=== PATIENT | male | born 1995 ===

== ENCOUNTER 2016-08-07 19:48 | Emergency (ER) | payer SELFPAY ==
[2016-08-07] MEDS ORDERED: KETAMINE HCL* 50 MG/ML 10 ML VIAL IM ONE (19:51)
[2016-08-07] MEDS ORDERED: Etomidate* 2 MG/ML 10 ML VIAL IV ONE (19:53)
[2016-08-07] MEDS ORDERED: Succinylcholine* 20 MG/ML 10 ML VIAL IV ONE (19:53)
[2016-08-07] MEDS ORDERED: Midazolam* 1 MG/ML 10 ML VIAL (10 MG) ONE (20:20)
[2016-08-07] MEDS ORDERED: Etomidate* 2 MG/ML 20 ML VIAL (40 MG) ONE (20:30)
[2016-08-07] MEDS: Propofol* 100 ML IV SCH ×2 (20:30→22:35)
[2016-08-07] MEDS ORDERED: KETAMINE HCL* 50 MG/ML 10 ML VIAL ONE (20:30)
[2016-08-07] MEDS ORDERED: Propofol* 200 ML ONE (20:34)
[2016-08-07] MEDS ORDERED: Propofol* 500 MG/50 ML BTL IV SCH (21:00)
[2016-08-07 21:20] LABS: Hematocrit 46 % (42-52); Hemoglobin 15.4 g/dl (14.0-18.0); Mean Corpuscular HGB Conc 33 g/dl (31-36); Mean Corpuscular Hemoglobin 31 pg (27-31); Mean Corpuscular Volume 92 fL (80-94); Mean Platelet Volume 10 um3 (7.4-10.4); Red Blood Count 5.05 10^6/ul (4.0-5.4); Red Cell Distribution Width 13 % (10.5-15); White Blood Count 15.6 10^3/ul (3.5-10.8)
--- NOTE | 2016-08-07 21:28 | RAD ---
INDICATION: Intubation COMPARISON: None TECHNIQUE: An AP portable view obtained at 2100 hours is submitted. FINDINGS: Bones/Soft Tissues: There are no acute bony findings. There is no endotracheal tube in satisfactory position 3 cm above the garo. Nasogastric tube passes normally through the mediastinum. Cardiomediastinal: The cardiomediastinal silhouette is normal. Lungs: There are no infiltrates. Pleura: There are no pleural effusions. Other: None IMPRESSION: NO ACTIVE DISEASE. ENDOTRACHEAL AND NASOGASTRIC TUBES IN EXPECTED POSITIONS.
[2016-08-07 21:35] LABS: Albumin 4.5 g/dL (3.2-5.2); BUN/Creatinine Ratio 12.2 (8-20); Calcium 9.1 mg/dL (8.6-10.3); EGFR African American 94.6 (>60); EGFR Non-African American 73.6 (>60); Globulin 2.7 g/dL (2-4); Total Bilirubin 0.8 mg/dL (0.2-1.0); Total Protein 7.2 g/dL (6.4-8.9)
--- NOTE | 2016-08-07 21:42 | RAD ---
INDICATION: Fall. Possible neck injury. Overdose. COMPARISON: Chest x-ray August 07, 2016 TECHNIQUE: Noncontrast axial source images was performed from the skull base to the thoracic inlet. Coronal and and sagittal reformatted images were generated. FINDINGS: Vertebrae: There is no fracture or acute focal bony lesion. Alignment: The craniocervical junction appears normal. The cervical vertebrae are normally aligned. Central Canal: There are no significant CT abnormalities of the central canal or foramina. MR imaging is a more sensitive method to evaluate the canal and foramina. Intervertebral disc spaces: The disc spaces are maintained. Brain: The visualized brain appears unremarkable. Soft tissues: The visualized soft tissue elements of the neck are remarkable for the presence of endotracheal and nasogastric tubes. The prevertebral soft tissues appear normal. The lung apices are clear. IMPRESSION: NO ACUTE BONY FINDINGS.
--- NOTE | 2016-08-07 21:42 | RAD ---
INDICATION: Fall.. Possible head injury. Overdose. COMPARISON: None TECHNIQUE: Noncontrast axial source images were acquired from the skull base to the vertex. FINDINGS: Ventricles/sulci: The ventricles and cisterns are normal in size and configuration for age. Brain parenchyma: There is no focal parenchymal finding, evidence of intracranial mass, or intracranial mass effect. Intracranial hemorrhage:None. Extra-axial spaces: There are no abnormal extra axial fluid collections or evidence of extra-axial mass. Calvarium: There is no calvarial fracture or other calvarial abnormality. Scalp: There is no evidence of scalp or extracalvarial soft tissue abnormality. Paranasal sinuses/mastoid: The paranasal sinuses and mastoid air cells are clear. Other: None. IMPRESSION: NO ACUTE INTRACRANIAL FINDINGS fall. Change in mental status
[2016-08-07 22:34] LABS: Potassium 3.9 mmol/L (3.5-5.0)
--- NOTE | 2016-08-07 22:51 | ED ---
Jeaneth Hartman Alok, scribed for Kevin Flores MD on 08/07/16 at 2003 . Substance Abuse/Use - HPI Summary HPI Summary: 20M presents to the ED BIBA for a heroine OD. Pt reportedly fell down 5 steps out of his garage into a cement floor basemnet when police and paramedics were called. EMS arrived on scene and patient presented with unresponsive with agonal respirations. Pt's father confirmed heroine IV use. EMS report head trauma possible. Pt was given .2 mg Narcan IM on scene which improved his condition and suctioned x1. Pt was respiratory bagged by EMS as well. Pt was given another 0.4 Narcan IV while in ambulance when his behavior began posturing , becoming agitated and combative. Pt given C-collar by EMS PIT OPERATOR. Pt's father states NKDA in patient. - History Of Current Complaint Stated Complaint: OVERDOSE Hx Obtained From: EMS Hx From Patient Unobtainable Due To: Altered Mental Status Onset/Duration of Drug/ETOH Abuse: Minutes Ingestion History: Type/Name Of Drug - Heroine Overdose Characteristics: IV Severity Initially: Moderate Severity Currently: Moderate Character: Other - agitated, combative Aggravating Factor(s): Nothing Alleviating Factor(s): Nothing Associated Signs And Symptoms: Diaphoretic, Agitated - Allergies/Home Medications Allergies/Adverse Reactions: Allergies Allergy/AdvReac Type Severity Reaction Status Date / Time No Known Allergies Allergy Verified 12/17/14 17:54 PMH/Surg Hx/FS Hx/Imm Hx Endocrine/Hematology History: Denies: Hx Diabetes, Hx Thyroid Disease Cardiovascular History: Denies: Hx Hypertension Respiratory History: Denies: Hx Asthma, Hx Chronic Obstructive Pulmonary Disease (COPD) GI History: Denies: Hx Ulcer History: Denies: Hx Dialysis, Hx Kidney Stones, Hx Renal Disease - Surgical History Surgery Procedure, Year, and Place: wisdom teeth, sinus surgery Infectious Disease History: Denies: Hx Hepatitis, Hx Human Immunodeficiency Virus (HIV) - Family History Known Family History: Negative: Cardiac Disease, Hypertension, Diabetes - Social History Alcohol Use: None Substance Use Type: Reports: None Smoking Status (MU): Unknown if Ever Smoked Type: Smokeless Tobacco Review of Systems Negative: Fever, Chills Positive: Other - 8 mm pupil dilation. Negative: Erythema Negative: Sore Throat Negative: Chest Pain Negative: Shortness Of Breath, Cough Negative: Abdominal Pain, Vomiting, Nausea Negative: dysuria, hematuria Negative: Myalgia, Edema Positive: Other - abrasion under nose. Negative: Rash Neurological: Other - Negative: Dizziness All Other Systems Reviewed And Are Negative: Yes Physical Exam - Summary Physical Exam Summary: Constitutional: Well-developed, Well-nourished, Alert. (-) Distressed Skin: Diaphoretic HENT: Facial flushing. Abrasion under nose Eyes: 8 mm pupil dilation. Neck: Musculoskeletal ROM normal neck. (-) JVD, (-) Stridor, (-) Tracheal deviation Cardio: Rhythm regular, rate normal, Heart sounds normal; Intact distal pulses; The pedal pulses are 2+ and symmetric. Radial pulses are 2+ and symmetric. (-) Murmur Pulmonary/Chest wall: Effort normal. (-) Respiratory distress, (-) Wheezes, (-) Rales Abd: Soft, (-) Tenderness, (-) Distension, (-) Guarding, (-) Rebound Musculoskeletal: (-) Edema Lymph: (-) Cervical adenopathy Neuro: Alert, Oriented x3 Psych: Pt appears agitated and combative. Triage Information Reviewed: Yes Vital Signs On Initial Exam: Initial Vital Signs Pulse 147 08/07/16 20:04 Resp 25 08/07/16 20:04 Pulse Ox 90 08/07/16 20:04 Vital Signs Reviewed: Yes Procedures - Intubation Time of Intubation: 20:18 - Patient required multiple SI drugs for successful intubation. Copious secretions in airway. Intubation Method: orotracheal - Video laryngoscope guided Tube Size (cm): 8.0 - 24 cm lip line withdrawn to 22 cm Breath Sounds after Intubation: equal - No epigatric sounds Post Intubation Xray: Yes Diagnostics - Laboratory Result Diagrams: 08/07/16 21:05 08/07/16 21:05 Lab Statement: Any lab studies that have been ordered have been reviewed, and results considered in the medical decision making process. - Radiology CXR Xray Interpretation: Positive (See Comments) - IMPRESSION: NO ACTIVE DISEASE. ENDOTRACHEAL AND NASOGASTRIC TUBES IN EXPECTED POSITIONS. Radiology Interpretation Completed By: Radiologist - CT Brain CT CT Interpretation: Positive (See Comments) - IMPRESSION: NO ACUTE INTRACRANIAL FINDINGS fall. Change in mental status CT Interpretation Completed By: Radiologist Cervical Spine CT CT Interpretation: Positive (See Comments) - IMPRESSION: NO ACUTE BONY FINDINGS. CT Interpretation Completed By: Radiologist - EKG 2042 Cardiac Rate: Tachycardia - 106 bpm EKG Rhythm: Sinus Tachycardia EKG Interpretation: No STEMI. Course/Dx - Diagnoses Provider Diagnoses: Closed head injury, Opiate overdose, Alcohol intoxication, fall from height, cerebral posturing - Physician Notifications Discussed Care Of Patient With: Dr. Daugherty (Trauma Surgeon at [facility]) - Accepts patient for admit Time Discussed With Above Provider: 21:56 - Critical Care Time Critical Care Time: 30-74 min - 60 min Discharge - Discharge Plan Condition: Stable Disposition: TRANS HIGHER LVL OF CARE FAC Referrals: Saulo Ochoa MD [Primary Care Provider] - The documentation as recorded by the Jeaneth guajardo Alok accurately reflects the service I personally performed and the decisions made by me, Kevin Flores MD.
[2016-08-07 22:57] VITALS: BP 141/72
== END 2016-08-07 22:40 | disposition short-term general hospital (02) ==
LOC: ED 19:48
DX: S00.31XA Abrasion of nose, initial encounter (principal); S09.90XA Unspecified injury of head, initial encounter; T40.601A Poisoning by unspecified narcotics, accidental (unintentional), initial encounter; W19.XXXA Unspecified fall, initial encounter; Y93.9 Activity, unspecified; Y92.9 Unspecified place or not applicable; F10.129 Alcohol abuse with intoxication, unspecified
CPT/HCPCS: 36415; 70450; 71010; 72125; 80053; 80320; 83605; 85025; 93005; 94002; 96372; 96374; 96375; 99285; G0480; J2250; J2704

== ENCOUNTER → 2016-11-08 05:44 | Emergency (ER) | payer OTHER ==
[2016-11-08 08:36] LABS: Hematocrit 45 % (42-52); Hemoglobin 15.7 g/dl (14.0-18.0); Mean Corpuscular HGB Conc 35 g/dl (31-36); Mean Corpuscular Hemoglobin 32 pg (27-31); Mean Corpuscular Volume 91 fL (80-94); Mean Platelet Volume 10 um3 (7.4-10.4); Red Blood Count 4.98 10^6/ul (4.0-5.4); Red Cell Distribution Width 12 % (10.5-15); White Blood Count 10.5 10^3/ul (3.5-10.8)
[2016-11-08 08:51] LABS: ALT 25 U/L (7-52); AST 36 U/L (13-39); Albumin 4.5 g/dL (3.2-5.2); Alkaline Phosphatase 67 U/L (34-104); Anion Gap 8 mmol/L (2-11); BUN/Creatinine Ratio 10.8 (8-20); Blood Urea Nitrogen 11 mg/dL (6-24); CO2 Carbon Dioxide 26 mmol/L (22-32); Calcium 9.5 mg/dL (8.6-10.3); Chloride 105 mmol/L (101-111); EGFR African American 116.4 (>60); EGFR Non-African American 90.5 (>60); Globulin 2.8 g/dL (2-4); Glucose 100 mg/dL (70-100); Potassium 3.6 mmol/L (3.5-5.0); Sodium 139 mmol/L (133-145); Total Protein 7.3 g/dL (6.4-8.9)
[2016-11-08 08:52] LABS: Alcohol < 10 mg/dL (<10); Salicylate < 2.50 mg/dL (<30)
[2016-11-08 08:55] LABS: Benzodiazepine Urine Screen None Detected (None Detect)
[2016-11-08 08:58] LABS: TSH (Thyroid Stimulating Horm) 3.62 mcIU/mL (0.34-5.60)
[2016-11-08 09:50] LABS: Urine Bilirubin Negative (Negative); Urine Glucose Negative (Negative); Urine Nitrite Negative (Negative)
[2016-11-08 10:41] VITALS: BP 127/66
[2016-11-08 11:35] LABS: Acetaminophen < 15 mcg/mL
--- NOTE | 2016-11-08 12:52 | PN ---
ED Flex Patient Progress Note Subjective: Patient seen/assessed in person. Read and reviewed crisis barrel handler notes and discussed the case together. Patient appears exhausted and admits to poor sleep for several days. States he used to get quetiapine 100mg nightly from his primary MD, Dr. Mondragon at [facility]. Would like to resume this and is agreeable to f/u at [facility]. Denies SI or HI. Objective: Calm and cooperative, good eye contact, respectful, fatigued; denies SI or HI. No overt psychosis noted. Assessment: Unspecified Mood DO Plan: Will Rx quetiapine 100mg PO qhs. F/U at [facility]. D/C to home. Patient agreeable to return to hospital if symptoms worsen. Vital Signs Temp Pulse Resp BP Pulse Ox 98.0 F 77 16 127/66 99 11/08/16 10:40 11/08/16 10:40 11/08/16 10:40 11/08/16 10:40 11/08/16 10:40 Lab Results - Entire Visit 11/08/16 11/08/16 11/08/16 06:04 06:04 06:04 WBC 10.5 RBC 4.98 Hgb 15.7 Hct 45 MCV 91 MCH 32 H MCHC 35 RDW 12 Plt Count 198 MPV 10 Neut % (Auto) 77.0 Lymph % (Auto) 17.1 L [place] % (Auto) 5.4 Eos % (Auto) 0.2 Baso % (Auto) 0.3 Absolute Neuts (auto) 8.1 H Absolute Lymphs (auto) 1.8 Absolute Monos (auto) 0.6 Absolute Eos (auto) 0 Absolute Basos (auto) 0 Absolute Nucleated RBC 0.02 Nucleated RBC % 0.2 Sodium Potassium Chloride Carbon Dioxide Anion Gap BUN Creatinine Est GFR ( Amer) Est GFR (Non-Af Amer) BUN/Creatinine Ratio Glucose Calcium Total Bilirubin AST ALT Alkaline Phosphatase Total Protein Albumin Globulin Albumin/Globulin Ratio TSH Urine Color Yellow Urine Appearance Clear Urine pH [address] 1.015 Urine Protein Negative Urine Ketones Negative Urine Blood Negative Urine Nitrate Negative Urine Bilirubin Negative Urine Urobilinogen Negative Ur Leukocyte Esterase Negative Urine Glucose Negative Salicylates Urine Opiates Screen None detected Acetaminophen Ur Barbiturates Screen None detected Ur Phencyclidine Scrn None detected Ur Amphetamines Screen None detected U Benzodiazepines Scrn None detected Urine Cocaine Screen None detected U Cannabinoids Screen None detected Serum Alcohol 11/08/16 06:04 WBC RBC Hgb Hct MCV MCH MCHC RDW Plt Count MPV Neut % (Auto) Lymph % (Auto) [place] % (Auto) Eos % (Auto) Baso % (Auto) Absolute Neuts (auto) Absolute Lymphs (auto) Absolute Monos (auto) Absolute Eos (auto) Absolute Basos (auto) Absolute Nucleated RBC Nucleated RBC % Sodium 139 Potassium 3.6 Chloride 105 Carbon Dioxide 26 Anion Gap 8 BUN 11 Creatinine 1.02 Est GFR ( Amer) 116.4 Est GFR (Non-Af Amer) 90.5 BUN/Creatinine Ratio 10.8 Glucose 100 Calcium 9.5 Total Bilirubin 0.80 AST 36 ALT 25 Alkaline Phosphatase 67 Total Protein 7.3 Albumin 4.5 Globulin 2.8 Albumin/Globulin Ratio 1.6 TSH 3.62 Urine Color Urine Appearance Urine pH Ur Specific [place] [address] Urine Protein Urine Ketones Urine Blood Urine Nitrate Urine Bilirubin Urine Urobilinogen Ur Leukocyte Esterase Urine Glucose Salicylates < 2.50 Urine Opiates Screen Acetaminophen < 15 Ur Barbiturates Screen Ur Phencyclidine Scrn Ur Amphetamines Screen U Benzodiazepines Scrn Urine Cocaine Screen U Cannabinoids Screen Serum Alcohol < 10
--- NOTE | 2016-11-08 16:29 | ED ---
Rafat Hartman Angela, scribed for Lee Bell MD on 11/08/16 at 0734 . Psychiatric Complaint - HPI Summary HPI Summary: This pt is a 21 y/o male presenting to [facility] c/o "having a break from reality." Pt notes he was having suicidal ideation last night. Today pt denies depression , SI thoughts, HI thoughts. He reports thoughts of everyone controlling and persecuting him. Pt is not on any medications for 2 months now. He states sleeping only a few hours every night. - History Of Current Complaint Chief Complaint: EDMentalHealth Time Seen by Provider: 11/08/16 07:22 Hx Obtained From: Patient Onset/Duration: Lasting Days Timing: Constant Character: Fearful Associated Signs And Symptoms: Positive: Paranoid Behavior Has Suicidal: Denies: Thoughts, With A Plan Has Homicidal: Denies: Thoughts, With A Plan - Allergies/Home Medications Allergies/Adverse Reactions: Allergies Allergy/AdvReac Type Severity Reaction Status Date / Time No Known Allergies Allergy Verified 12/17/14 17:54 PMH/Surg Hx/FS Hx/Imm Hx Endocrine/Hematology History: Denies: Hx Diabetes, Hx Thyroid Disease Cardiovascular History: Denies: Hx Hypertension Respiratory History: Denies: Hx Asthma, Hx Chronic Obstructive Pulmonary Disease (COPD) GI History: Denies: Hx Ulcer History: Denies: Hx Dialysis, Hx Kidney Stones, Hx Renal Disease Psychiatric History: Reports: Hx Substance Abuse - drug - Surgical History Surgery Procedure, Year, and Place: wisdom teeth, sinus surgery Infectious Disease History: No Infectious Disease History: Denies: Hx Hepatitis, Hx Human Immunodeficiency Virus (HIV), Traveled Outside the [place] in Last 30 Days - Family History Known Family History: Negative: Cardiac Disease, Hypertension, Diabetes - Social History Alcohol Use: None Substance Use Type: Reports: None Smoking Status (MU): Unknown if Ever Smoked Type: Smokeless Tobacco Review of Systems Negative: Fever, Chills Eyes: Negative Gastrointestinal: Negative Skin: Negative Negative: Headache, Weakness, Paresthesia, Numbness Positive: Other - thoughts of people controlling him All Other Systems Reviewed And Are Negative: Yes Physical Exam - Summary Physical Exam Summary: VITAL SIGNS: Reviewed. GENERAL: ~Patient is a well-developed and nourished male who is lying comfortable in the stretcher. ~Patient is not in any acute respiratory distress. HEAD AND FACE: No signs of trauma. ~No ecchymosis, hematomas or skull depressions. No sinus tenderness. EYES: PERRLA, EOMI x 2, No injected conjunctiva, no nystagmus. EARS: Hearing grossly intact. Ear canals and tympanic membranes are within normal limits. MOUTH: Oropharynx within normal limits. NECK: Supple, trachea is midline, no adenopathy, no JVD, no carotid bruit, no c- spine tenderness, neck with full ROM. CHEST: Symmetric, no tenderness at palpation LUNGS: Clear to auscultation bilaterally. No wheezing or crackles. CVS: Regular rate and rhythm, S1 and S2 present, no murmurs or gallops appreciated. ABDOMEN: Soft, non-tender. No signs of distention. No rebound no guarding, and no masses palpated. Bowel sounds are normal. EXTREMITIES: FROM in all major joints, no edema, no cyanosis or clubbing. NEURO: Alert and oriented x 3. No acute neurological deficits. Speech is normal and follows commands. SKIN: Dry and warm PSYCH: Denies any suicidal thoughts or plan. No homicidal thoughts or plan. Pt is a little paranoid. Triage Information Reviewed: Yes Vital Signs On Initial Exam: Initial Vitals Temp Pulse Resp BP Pulse Ox 98 F 93 18 156/91 100 11/08/16 05:54 11/08/16 05:54 11/08/16 05:54 11/08/16 05:54 11/08/16 05:54 Vital Signs Reviewed: Yes - [place] Coma Scale Coma Scale Total: 15 Diagnostics - Vital Signs Vital Signs Temp Pulse Resp BP Pulse Ox 11/08/16 05:54 98 F 93 18 156/91 100 - Laboratory Lab Results: Lab Results 11/08/16 11/08/16 11/08/16 Range/Units 06:04 06:04 06:04 WBC 10.5 (3.5-10.8) 10^3/ul RBC 4.98 (4.0-5.4) 10^6/ul Hgb 15.7 (14.0-18.0) g/dl Hct 45 (42-52) % MCV 91 (80-94) fL MCH 32 H (27-31) pg MCHC 35 (31-36) g/dl RDW 12 (10.5-15) % Plt Count 198 (150-450) 10^3/ul MPV 10 (7.4-10.4) um3 Neut % (Auto) 77.0 (38-83) % Lymph % (Auto) 17.1 L (25-47) % [place] % (Auto) 5.4 (1-9) % Eos % (Auto) 0.2 (0-6) % Baso % (Auto) 0.3 (0-2) % Absolute Neuts (auto) 8.1 H (1.5-7.7) 10^3/ul Absolute Lymphs (auto) 1.8 (1.0-4.8) 10^3/ul Absolute Monos (auto) 0.6 (0-0.8) 10^3/ul Absolute Eos (auto) 0 (0-0.6) 10^3/ul Absolute Basos (auto) 0 (0-0.2) 10^3/ul Absolute Nucleated RBC 0.02 10^3/ul Nucleated RBC % 0.2 Sodium 139 (133-145) mmol/L Potassium 3.6 (3.5-5.0) mmol/L Chloride 105 (101-111) mmol/L Carbon Dioxide 26 (22-32) mmol/L Anion Gap 8 (2-11) mmol/L BUN 11 (6-24) mg/dL Creatinine 1.02 (0.67-1.17) mg/dL Est GFR ( Amer) 116.4 (>60) Est GFR (Non-Af Amer) 90.5 (>60) BUN/Creatinine Ratio 10.8 (8-20) Glucose 100 (70-100) mg/dL Calcium 9.5 (8.6-10.3) mg/dL Total Bilirubin 0.80 (0.2-1.0) mg/dL AST 36 (13-39) U/L ALT 25 (7-52) U/L Alkaline Phosphatase 67 (34-104) U/L Total Protein 7.3 (6.4-8.9) g/dL Albumin 4.5 (3.2-5.2) g/dL Globulin 2.8 (2-4) g/dL Albumin/Globulin Ratio 1.6 (1-3) TSH 3.62 (0.34-5.60) mcIU/mL Urine Color Urine Appearance Urine pH (5-9) Ur Specific [place] (1.010-1.030) Urine Protein (Negative) Urine Ketones (Negative) Urine Blood (Negative) Urine Nitrate (Negative) Urine Bilirubin (Negative) Urine Urobilinogen (Negative) Ur Leukocyte Esterase (Negative) Urine Glucose (Negative) Salicylates < 2.50 (<30) mg/dL Urine Opiates Screen None detected (None Detect) Acetaminophen < 15 mcg/mL Ur Barbiturates Screen None detected (None Detect) Ur Phencyclidine Scrn None detected (None Detect) Ur Amphetamines Screen None detected (None Detect) U Benzodiazepines Scrn None detected (None Detect) Urine Cocaine Screen None detected (None Detect) U Cannabinoids Screen None detected (None Detect) Serum Alcohol < 10 (<10) mg/dL 11/08/16 Range/Units 06:04 WBC (3.5-10.8) 10^3/ul RBC (4.0-5.4) 10^6/ul Hgb (14.0-18.0) g/dl Hct (42-52) % MCV (80-94) fL MCH (27-31) pg MCHC (31-36) g/dl RDW (10.5-15) % Plt Count (150-450) 10^3/ul MPV (7.4-10.4) um3 Neut % (Auto) (38-83) % Lymph % (Auto) (25-47) % [place] % (Auto) (1-9) % Eos % (Auto) (0-6) % Baso % (Auto) (0-2) % Absolute Neuts (auto) (1.5-7.7) 10^3/ul Absolute Lymphs (auto) (1.0-4.8) 10^3/ul Absolute Monos (auto) (0-0.8) 10^3/ul Absolute Eos (auto) (0-0.6) 10^3/ul Absolute Basos (auto) (0-0.2) 10^3/ul Absolute Nucleated RBC 10^3/ul Nucleated RBC % Sodium (133-145) mmol/L Potassium (3.5-5.0) mmol/L Chloride (101-111) mmol/L Carbon Dioxide (22-32) mmol/L Anion Gap (2-11) mmol/L BUN (6-24) mg/dL Creatinine (0.67-1.17) mg/dL Est GFR ( Amer) (>60) Est GFR (Non-Af Amer) (>60) BUN/Creatinine Ratio (8-20) Glucose (70-100) mg/dL Calcium (8.6-10.3) mg/dL Total Bilirubin (0.2-1.0) mg/dL AST (13-39) U/L ALT (7-52) U/L Alkaline Phosphatase (34-104) U/L Total Protein (6.4-8.9) g/dL Albumin (3.2-5.2) g/dL Globulin (2-4) g/dL Albumin/Globulin Ratio (1-3) TSH (0.34-5.60) mcIU/mL Urine Color Yellow Urine Appearance Clear Urine pH 6 (5-9) Ur Specific [place] 1.015 (1.010-1.030) Urine Protein Negative (Negative) Urine Ketones Negative (Negative) Urine Blood Negative (Negative) Urine Nitrate Negative (Negative) Urine Bilirubin Negative (Negative) Urine Urobilinogen Negative (Negative) Ur Leukocyte Esterase Negative (Negative) Urine Glucose Negative (Negative) Salicylates (<30) mg/dL Urine Opiates Screen (None Detect) Acetaminophen mcg/mL Ur Barbiturates Screen (None Detect) Ur Phencyclidine Scrn (None Detect) Ur Amphetamines Screen (None Detect) U Benzodiazepines Scrn (None Detect) Urine Cocaine Screen (None Detect) U Cannabinoids Screen (None Detect) Serum Alcohol (<10) mg/dL Result Diagrams: 11/08/16 06:04 11/08/16 06:04 Lab Statement: Any lab studies that have been ordered have been reviewed, and results considered in the medical decision making process. Course/Dx - Course Assessment/Plan: This pt is a 21 y/o male presenting to [facility] c/o "having a break from reality." Pt notes he was having suicidal ideation last night. Today pt denies depression, SI thoughts, HI thoughts. He reports thoughts of everyone controlling and persecuting him. Pt is not on any medications for 2 months now. He states sleeping only a few hours every night. Pt was medically cleared for [facility]. Dr. Germain assessed the pt and reports that the pt is feeling depressed but is not suicidal. Dr. Germain will discharge the pt home with a 30 day supply of Seroquel. Pt is referred for outpatient follow up at [facility]. - Differential Dx/Clinical Impression Differential Diagnosis/HQI/PQRI: Positive: Anxiety, Depression, Other - Paranohia Provider Diagnosis: Depressive disorder Discharge - Discharge Plan Condition: Stable Disposition: HOME Prescriptions: QUEtiapine TAB* [Seroquel TAB*] 100 mg PO BEDTIME #30 tab Referrals: Saulo Ochoa MD [Primary Care Provider] - The documentation as recorded by the Rafat guajardo Angela accurately reflects the service I personally performed and the decisions made by Ray ardon Walter, MD.
== END | disposition home or self-care (01) ==
LOC: ED 05:44
DX: F32.9 Major depressive disorder, single episode, unspecified (principal)
CPT/HCPCS: 36415; 80053; 80307; 80320; 80329; 81003; 84443; 85025; 99285; G0480

== ENCOUNTER 2016-11-12 11:50 | Observation (INO) | payer OTHER ==
[2016-11-12 12:14] LABS: Hematocrit 47 % (42-52); Hemoglobin 16.3 g/dl (14.0-18.0); Mean Corpuscular HGB Conc 35 g/dl (31-36); Mean Corpuscular Hemoglobin 32 pg (27-31); Mean Corpuscular Volume 92 fL (80-94); Mean Platelet Volume 9 um3 (7.4-10.4); Red Blood Count 5.08 10^6/ul (4.0-5.4); Red Cell Distribution Width 13 % (10.5-15); White Blood Count 5.2 10^3/ul (3.5-10.8)
[2016-11-12 12:29] LABS: ALT 57 U/L (7-52); Albumin 4.6 g/dL (3.2-5.2); Alkaline Phosphatase 73 U/L (34-104); BUN/Creatinine Ratio 13.6 (8-20); Blood Urea Nitrogen 14 mg/dL (6-24); CO2 Carbon Dioxide 29 mmol/L (22-32); Calcium 9.4 mg/dL (8.6-10.3); Chloride 104 mmol/L (101-111); EGFR African American 115.1 (>60); EGFR Non-African American 89.5 (>60); Globulin 2.6 g/dL (2-4); Glucose 113 mg/dL (70-100); Sodium 137 mmol/L (133-145); Total Protein 7.2 g/dL (6.4-8.9)
[2016-11-12 12:49] LABS: Acetaminophen < 15 mcg/mL; Alcohol < 10 mg/dL (<10); Salicylate < 2.50 mg/dL (<30)
[2016-11-12 12:55] LABS: TSH (Thyroid Stimulating Horm) 1.27 mcIU/mL (0.34-5.60)
[2016-11-12 13:09] LABS: AST 50 U/L (13-39); Anion Gap 4 mmol/L (2-11)
--- NOTE | 2016-11-12 14:26 | ED ---
Eduardo Hartman Benjamin, scribed for Lee Castaneda MD on 11/12/16 at 1220 . Psychiatric Complaint - HPI Summary HPI Summary: 21yo male c/o visual and auditory hallucinations for 2 days. He states that someone is persucting and following him trying to harm him. Pt was rxed with Seroquel and has been taking Seroquel every couple of hours for 2 days. Pt also reported cutting himself while he was hallucinating. Pt presents some cutmarks on his left forearm. Pt also had insomnia a week before seeing hallucinations. Pt has psych hx of depression and anxiety. Pt is a former IV heroin abuser and has hx of traumatic brain injury. Pt denies any hx ofhallucinations prior to this episode. - History Of Current Complaint Time Seen by Provider: 11/12/16 11:57 - Allergies/Home Medications Allergies/Adverse Reactions: Allergies Allergy/AdvReac Type Severity Reaction Status Date / Time No Known Allergies Allergy Verified 12/17/14 17:54 PMH/Surg Hx/FS Hx/Imm Hx Endocrine/Hematology History: Denies: Hx Diabetes, Hx Thyroid Disease Cardiovascular History: Denies: Hx Hypertension Respiratory History: Denies: Hx Asthma, Hx Chronic Obstructive Pulmonary Disease (COPD) GI History: Denies: Hx Ulcer History: Denies: Hx Dialysis, Hx Kidney Stones, Hx Renal Disease Psychiatric History: Reports: Hx Anxiety, Hx Depression, Hx Substance Abuse - drug Denies: Hx Eating Disorder, Hx of Violent Episodes Against Others - Surgical History Surgery Procedure, Year, and Place: wisdom teeth, sinus surgery Infectious Disease History: Denies: Hx Hepatitis, Hx Human Immunodeficiency Virus (HIV) - Family History Known Family History: Positive: Other - psychiatric hx Negative: Cardiac Disease, Hypertension, Diabetes - Social History Occupation: Student Lives: With Family Alcohol Use: None Substance Use Type: Reports: None Smoking Status (MU): Unknown if Ever Smoked Type: Smokeless Tobacco Review of Systems Constitutional: Negative Eyes: Negative ENT: Negative Cardiovascular: Negative Respiratory: Negative Gastrointestinal: Negative Genitourinary: Negative Musculoskeletal: Negative Skin: Negative Neurological: Negative Positive: Anxious, Other - hallucination All Other Systems Reviewed And Are Negative: Yes Physical Exam Triage Information Reviewed: Yes Vital Signs On Initial Exam: Initial Vitals Temp 99 F 11/12/16 12:14 Vital Signs Reviewed: Yes Appearance: Positive: Well-Appearing, No Pain Distress Skin: Positive: Warm, Skin Color Reflects Adequate Perfusion, Other - several superficial lacs to left forearm. Head/Face: Positive: Normal Head/Face Inspection Eyes: Positive: EOMI ENT: Positive: Normal ENT inspection Neck: Positive: Supple, Nontender Respiratory/Lung Sounds: Positive: Clear to Auscultation, Breath Sounds Present Cardiovascular: Positive: RRR. Negative: Murmur Abdomen Description: Positive: Nontender Musculoskeletal: Positive: Strength/ROM Intact Neurological: Positive: Sensory/Motor Intact, Alert, Oriented to Person Place, Time, CN Intact II-III Psychiatric: Positive: Normal Diagnostics - Vital Signs Vital Signs Temp 11/12/16 12:14 99 F - Laboratory Lab Results: Lab Results 11/12/16 Range/Units 12:02 WBC 5.2 (3.5-10.8) 10^3/ul RBC 5.08 (4.0-5.4) 10^6/ul Hgb 16.3 (14.0-18.0) g/dl Hct 47 (42-52) % MCV 92 (80-94) fL MCH 32 H (27-31) pg MCHC 35 (31-36) g/dl RDW 13 (10.5-15) % Plt Count 177 (150-450) 10^3/ul MPV 9 (7.4-10.4) um3 Neut % (Auto) 58.6 (38-83) % Lymph % (Auto) 27.9 (25-47) % Calvert % (Auto) 11.1 H (1-9) % Eos % (Auto) 1.5 (0-6) % Baso % (Auto) 0.9 (0-2) % Absolute Neuts (auto) 3.0 (1.5-7.7) 10^3/ul Absolute Lymphs (auto) 1.4 (1.0-4.8) 10^3/ul Absolute Monos (auto) 0.6 (0-0.8) 10^3/ul Absolute Eos (auto) 0.1 (0-0.6) 10^3/ul Absolute Basos (auto) 0 (0-0.2) 10^3/ul Absolute Nucleated RBC 0 10^3/ul Nucleated RBC % 0 Result Diagrams: 11/12/16 12:02 11/12/16 12:02 Lab Statement: Any lab studies that have been ordered have been reviewed, and results considered in the medical decision making process. - EKG 1208. Cardiac Rate: NL - 94bpm EKG Rhythm: Sinus Rhythm ST Segment: Normal Ectopy: None EKG Interpretation: NO STEMI Course/Dx - Course Course Of Treatment: Reviewed pt's list of medication and allergies. Blood pressure noted. Discussed with Poison Control, advised to observe pt for 6 hours. - Differential Dx/Clinical Impression Provider Diagnosis: Drug overdose, Psychosis, Self-mutilation Discharge - Discharge Plan Condition: Good Disposition: ADMITTED TO [facility] Referrals: Saulo Ochoa MD [Primary Care Provider] - The documentation as recorded by the Eduardo guajardo Benjamin accurately reflects the service I personally performed and the decisions made by Tonya ardon Walter, MD.
[2016-11-12] MEDS ORDERED: Ondansetron INJ* 2 MG/ML VIAL IV PRN (15:12)
[2016-11-12] MEDS ORDERED: Acetaminophen TAB* 325 MG PO PRN (15:14)
[2016-11-12 17:56] LABS: Urine Bilirubin Negative (Negative); Urine Glucose Negative (Negative); Urine Nitrite Negative (Negative)
[2016-11-12 18:25] LABS: Benzodiazepine Urine Screen None Detected (None Detect)
--- NOTE | 2016-11-12 21:31 | HP ---
CC: Dr. Ochoa* ADMISSION HISTORY AND PHYSICAL: DATE OF ADMISSION: 11/11/16 PRIMARY CARE PROVIDER: Dr. Ochoa. ADMITTING PROVIDER: ERENDIRA Lynn SUPERVISING PHYSICIAN: Johanne Griffin MD* (dictated by ERENDIRA Lynn) CHIEF COMPLAINT: Visual hallucinations and Seroquel overdose. HISTORY OF PRESENT ILLNESS: This is a 21-year-old gentleman with a history of anxiety and depression who presented to the emergency department with complaints of visual hallucination after a Seroquel overdose. The patient was evaluated in the emergency department on 11/08/16 with a chief complaint of "I had a break from reality" and felt suicidal at that time. His feelings of suicidality and what he described as delusional thoughts improved prior to and during his time in the emergency department. He was evaluated by Psychiatry at that time. It was felt that he was safe for discharge home. The patient had previously been treated with Seroquel for his depressive disorder and requested to be put back on that medication and a prescription was written for a 30-day supply at that time. The patient states that over the last several days, he has began to have these delusional thought patterns, which he describes as mostly paranoid in nature and he tried to self-medicate with alcohol trying 4 to 5 shots of hard alcohol a couple of days ago and when there was no improvement, he took some extra Seroquel. He believes that he only took 6 pills over the last 2 days and then began having visual hallucinations, which were new and prompted his visit to the emergency department. He states that he does not feel suicidal at this time, but is requesting psychiatric evaluation. He denies any history of prior psychosis. Inciting factors include recently moving out of living with his parents and a new job, which took him from basically an unemployed state to approximately 50-hour work a week, and both of those were stressful events for him. Over the last several days, he has had inflicted some superficial cuts over his left forearm, which he states were not suicidal in intention. PAST MEDICAL HISTORY: Unspecified mood disorder per psychiatric notes and per the patient, he states he has been treated for anxiety and depression. PAST SURGICAL HISTORY: None. HOME MEDICATIONS: Seroquel 100 mg p.o. at bedtime. SOCIAL HISTORY: The patient is currently living on his own. He is employed as a photo lab technician. Denies any history of illicit drug use or abuse. Drinks alcohol socially generally and denies any smoking history. REVIEW OF SYSTEMS: As noted above in HPI. All other systems reviewed and considered negative. PHYSICAL EXAMINATION GENERAL: This is a pleasant and calm 21-year-old gentleman, in no acute distress. He is sitting comfortably in an emergency department stretcher and is cooperative with his exam. VITAL SIGNS: Temperature 99 degrees Fahrenheit, pulse 104 beats per minute, respiratory rate 17, oxygen saturation 99% on room air, and blood pressure of 147/91 mmHg. HEENT: Head is normocephalic, atraumatic. Mucous membranes are pink and moist. RESPIRATORY: Lungs are clear to auscultation without wheezes, crackles, or rhonchi. CARDIOVASCULAR: Heart has a regular rate and rhythm without murmurs, rubs, or gallops. ABDOMEN: Soft and nontender to palpation. EXTREMITIES: No edema noted. He does have a clean and intact dressing over superficial lacerations of his left forearm that did not require repair. LABORATORY EVALUATION: CBC is unremarkable with a white blood cell count of 5, 200, hemoglobin of 16.3 g/dL, and a platelet count of 177,000. Comprehensive metabolic panel is remarkable only for mild transaminitis with a sodium of 137 mmol/L, potassium 4.0, bicarb 29, BUN 14, creatinine 1.03, random glucose of 113. AST of 50, ALT of 57, total bili normal at 0.6, and alk phos normal at 73. Urine toxicology screen was negative for salicylates, acetaminophen, and serum alcohol. IMAGING: EKG shows a normal sinus rhythm with QTc of 402 msec. ASSESSMENT AND PLAN: This is a 21-year-old gentleman who comes in with visual hallucinations after Seroquel overdose without suicidal intention. Recommendations from Poison Control is for telemetry monitoring for 6 hours for which the hospitalist group was then contacted for admission. 1. Seroquel overdose - the patient's initial EKG is unremarkable including a normal QTc. We will monitor on telemetry per Poison Control recommendations. The patient is asymptomatic with the exception of visual hallucinations, which may or may not be due to his drug indigestion. 2. Unspecified psychosis - the patient reports history of paranoid and delusional thoughts over the last week or so, which proceeded his substance overdose and has sought psychiatric care for these concerns in the last few days. The patient does require evaluation by Psychiatry prior to determination of whether he is safe for discharge from the hospital. He does not display any suicidal ideations at this time. 3. Transaminitis - this is mild and limited to slightly elevated AST and ALT, which may be due to his recent alcohol binge. Serum acetaminophen levels are negative and the patient denies any other indigestions. We will repeat a comprehensive metabolic panel in the morning. 4. Code status. The patient is full code. 5. DVT prophylaxis. The patient is low risk and will be encouraged to ambulate regularly, but chemical prophylaxis will not be initiated at this time. 6. Disposition: The patient is being admitted to observation status for telemetry monitoring related to Seroquel overdose, but require psychiatric evaluation before discharge planning can be completed. ERENDIRA LYNN [id number]/[facility] #: [id number] LANA
--- NOTE | 2016-11-13 01:04 | HP ---
CC: Dr. Ochoa. HISTORY AND PHYSICAL: ADDENDUM: PRIMARY CARE PROVIDER: Dr. Ochoa. HISTORY OF PRESENT ILLNESS: Mr. Urias is a 21-year-old male with a past medical history of psychos is that presented to the emergency room on November 08 with complaints of hallucinations. At alondra t point, he was discharged home on Seroquel and apparently he has been taking a higher dose than pre scribed, trying to self treat his hallucinations that continue to progress. [facility] with reports of taking extra Seroquel. His case was discussed with Po portia Control and the recommendation was to watch the patient on telemetry, especially for signs of Q TC prolongation. The plan is for a mental health evaluation in the morning as the patient would lik sandie benefit of further mental health treatment. This case was reviewed and discussed with ERENDIRA Reyes. [id number]/[facility] #: [id number]
[2016-11-13 05:43] LABS: Albumin 4.2 g/dL (3.2-5.2); BUN/Creatinine Ratio 11.9 (8-20); Calcium 9.6 mg/dL (8.6-10.3); EGFR African American 117.7 (>60); EGFR Non-African American 91.5 (>60); Globulin 2.6 g/dL (2-4); Potassium 3.5 mmol/L (3.5-5.0); Total Bilirubin 1.3 mg/dL (0.2-1.0); Total Protein 6.8 g/dL (6.4-8.9)
[2016-11-13] MEDS ORDERED: Polyethylene Glycol 3350* 17 GM PACKET PO ONE (09:30)
[2016-11-13] MEDS ORDERED: LORazepam TAB(*) 1 MG PO ONE (15:15)
[2016-11-13 19:20] VITALS: BP 151/92
--- NOTE | 2016-11-13 23:08 | CONS ---
Amended report to enter date of consultation. PSYCHIATRIC CONSULTATION NOTE: DATE OF CONSULT: 11/13/2016. ATTENDING CLINICIAN: Reno Ch MD CONSULTING PSYCHIATRIST: Vimal Germain MD REASON FOR CONSULT: Seroquel overdose. SUBJECTIVE HISTORY: Psychiatry is asked to see this 21-year-old single white Croatian-Welsh with a history of substance abuse and affective disturbances , who was just recently evaluated in the ED Behavioral Health Flex Unit on 04/11 who now returns to the hospital admitting that he overdosed on anywhere between 8 and 30 tablets of 100 mg Seroquel with uncertain motivations for doing so. At times, the patient seems to relate that this was a suicide attempt ; but at other times, he is vague and indicates that he just wanted to either sleep or to feel better. I am told by his nurse prior to me entering his room that he has made both suicidal and homicidal statements to his one-to-one observer and that he was starting to become agitated requiring one-time administration of 2 mg of Ativan. This observer did briefly evaluated the patient on 11/09/16 in the ED. At that time, he was complaining of sleeplessness and some paranoid thoughts towards his family, which he did not elucidate. He steadfastly denied suicidal or homicidal ideations at that time and stated it was his intention to follow up with [facility]. At that time, because he had been stable on 100 mg of Seroquel in the past, I did prescribe him Seroquel 100 mg for a 30-day supply. In the intervening time, the patient states that he was able to get the medication and initially the first few days took it as directed, but states that he was under a great deal of stress as his father was not allowing him to sleep in the house. He is not totally certain about what the father's motivations were, but apparently he has a history of substance abuse and has stolen things from his family in the past. The patient now endorses that he has had psychotic phenomenon going on for at least 3 weeks. He indicates for example that he had auditory hallucinations of his father telling him that he was God. He also indicates that he started having pentecostalism preoccupations, which started changing in that he went from having delusions of being a Messiah to delusions that the people that he worked with at a [employer] in [place] were actually artificial intelligence. The patient does endorse experiences of paranoia believing that the nurses on the unit area secretly Israeli and want him to commit suicide. He also gets bizarre testimonials about such unusual experiences as seeing an elderly woman in one part of his town and then driving to another part and seeing the exact same woman. He is clearly confused and emotionally distraught at this time. I did screen him for neurovegetative symptoms of depression. However, these are largely negative with the exception of sleep and concentration problems, which are likely secondary to psychosis. In terms of the historic background, he is telling me that he has not felt right since approximately 5 years ago when he first he first used synthetic cannabis. This led to other substances of abuse. However, he is insisting that he has been abstinent from all drugs of abuse with the exception of alcohol since an overdose attempt in late July 2016. Symptomatically, the patient denies anything consistent with dorothy or PTSD or OCD. He is currently going back and forth in terms of his willingness to come to behavioral science unit. PAST PSYCHIATRIC HISTORY: The patient states that years ago, he was placed on a trial of Lexapro and Seroquel by his outpatient family care provider, Dr. Ochoa, in [place], [place]. He indicates that he had been largely nonadherent with this most recently. He does have the intention of getting hooked up with [facility]. However, he had failed to make an intake appointment with them. He does indicate that he has had several suicidal gestures in the past typically by overdosing on street drugs. A very significant heroin overdose in late July brought him to the emergency Department of [facility]. However, he was transferred to [place] for further care at that time and he does not remember whether he was psychiatrically hospitalized. PAST MEDICAL HISTORY: Noncontributory. FAMILY HISTORY: He states that his older brother had a brief psychotic episode after working too many hours at work and he did take medication briefly, but no longer does so. SOCIAL HISTORY: The patient was born to his parents in the [facility] prior to him moving to the [place] at the age of 4, his mother had and his father remarried someone and had 2 daughters through that marriage. Altogether he has one full older brother and two younger half sisters. The patient went to high school and graduated with the diploma from [employer]. He then took courses at [employer] for approximately 2 years, but did not get a degree. 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 Apparently when he started thinking that his employers were artificial intelligence, he quit and has not been back to work in the past week. He is single and never . He is not currently sexually active and has no history of sexually transmitted diseases. He is neither pentecostalism, nor spiritual. He has no history of service. No history of legal problems. Currently, he is homeless and living in his car in his father's driveway. The patient does indicate that he is closest with his brother, Louis, but when he attempts to get his brother's telephone number out of his cellular phone, he discovers that the battery is just empty and the phone is dysfunctional. SUBSTANCE ABUSE HISTORY: The patient indicates that he has been abusing drugs since the age of 16 starting with organic cannabis, then synthetic cannabis followed by use of methamphetamines and use of opioids. He claims to have been sober since July. He did have one 2-month inpatient rehab at a facility in [place], [place], where he has family residing and was discharged in February of 2016, but quickly relapsed. Most recently, he has been using alcohol in order to take the edge off. He denies being a cigarette smoker. Urine drug screen at this time is negative for all substances tested including alcohol. REVIEW OF SYSTEMS: The patient denies headache or double vision. He denies sore throat, cough, chest pain, difficulty breathing. He denies abdominal pain , nausea, vomiting, diarrhea or constipation. Denies difficulty ambulating, rashes, enlarged lymph nodes, fevers or changes in weight. PHYSICAL EXAMINATION: Vitals: Blood pressure 134/89, heart rate 83, respiratory rate is 16, temperature is 97.9 degrees Fahrenheit, oxygen saturations are 100% on room air. HEENT: Head is normocephalic atraumatic. Neck is supple. Chest is clear to auscultation bilaterally. Cardiac exam reveals normal heart sounds. Abdomen is soft and nontender. Skin is warm and dry. Neurologically, he is grossly intact with no focal deficits. MENTAL STATUS EXAM: The patient is a young Slavic white male wearing patient's scrubs. He has disheveled hair. He appears to be extremely fatigued, although he is calm and cooperative. He is sitting up in bed and makes fairly good eye contact. Speech does display some latency, but is otherwise fluent. Mood appears to be dysthymic with a blunted affect. Thought process shows mild thought blocking, but is otherwise linear. Thought content is significant for paranoid delusions to the effect that other people at work are forms of artificial intelligence and that we are living in the end times. He endorses auditory and visual hallucinations. He is endorsing both suicidal and homicidal ideations stating at one point that he would hurt other people here in the hospital. Insight and judgement appeared to be fair given his willingness to taken antipsychotic therapy. Cognitively, he is awake and alert with what would appear to be an average intellect. LABS: CBC and complete metabolic panel are both within normal limits as are the urinalysis and urine drug screen. DIAGNOSES: Sanford I: Unspecified psychotic disorder, rule out schizophrenic form disorder versus bipolar depression with psychotic features. Opioid dependence in sustained remission. 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 Sanford II: Deferred. ASSESSMENT: The patient is a 21-year-old single white Croatian-Welsh male with a history of substance abuse and affective problems who was just evaluated and discharged from the psychiatric emergency room on 11/09/16, who now returns having overdosed on an unspecified number of Seroquel 100 mg tablets. At this time, the patient is acutely psychotic. He is endorsing both suicidal and homicidal thoughts. He appears to be extremely fatigued and overwhelmed. Clearly, I think he would benefit from inpatient psychiatric stabilization. RECOMMENDATIONS TO PRIMARY TEAM: We are recommending that the patient be transferred to the behavioral science unit for further stabilization. Given the patient's changing acceptance of psychiatric hospitalization, I think he should be placed on a 9.39. We will be starting a trial of risperidone 2 mg p.o. q.h.s., and he will require further inpatient treatment as well as discharge planning. Thank you very much for the interesting consult. Psychiatry will continue to follow until he is transferred to our service officially. [id number]/[facility] #: [id number] [facility] CENTERMilagro
--- NOTE | 2016-11-14 05:02 | DS ---
CC: Dr. Ochoa* DISCHARGE SUMMARY: DATE OF ADMISSION: 11/12/16 DATE OF DISCHARGE: 11/13/16 PRIMARY CARE PROVIDER: Dr. Saulo Ochoa. PRIMARY DIAGNOSIS: Seroquel overdose. SECONDARY DIAGNOSES: Include: 1. Suspected schizophrenia. 2. Transaminitis. DISPOSITION ON DISCHARGE: Mental Health Unit. MEDICATIONS ON DISCHARGE: Include: 1. Buspirone 10 mg twice daily. 2. Lexapro 50 mg daily. 3. Clonidine 0.1 mg daily to be adjusted as necessary. HISTORY OF PRESENT ILLNESS AND HOSPITAL COURSE: This is a 21-year-old man recent presentation to the emergency room on 11/08/16, chief complaint of "I had a break from reality", there was no feelings of suicidality. He was evaluated deemed safe for discharge. He was supplied 30 day supply of Seroquel. At that time, he has been self-medicating, having alcohol as well as increased as of Seroquel. It is very hard for him to relay how much Seroquel he had been taking. At one pint, he said, he said he was taking 1 every couple of hours for several days. However, when I asked how many tabs he has left out of the 30, he says 22. Because of his presentation to the hospital with additional visual hallucinations as well as increased Seroquel dosing, the emergency room contacted, Poison Control recommended, observation on telemetry, as well as serial monitoring of QTc syndrome. The patient was admitted to the hospitalist service. His QTc remained within normal limits. On the last check at 10:45 a.m. on the day of discharge QTc of 418. While on the floor, the patient was disruptive, discussed with the nurses difficulty masturbating as well as attempting to show them pornography on cellphone. Later during this hospital stay, he became threatening saying that he had sensation that he want to kill people as well as himself. In conjunction with Dr. Germain, he did receive 2 mg of Ativan once at that time. He was accepted to transfer further care at [facility]. At the time of this dictation, a bed on the Mental Health Unit is pending. There are no complications during the course of this hospital stay. TIME SPENT: Greater than 30 minutes was spent on discharge of the patient, of which greater than half was spent [id number] with the patient. [id number]/[facility] #: [id number] [facility]
== END 2016-11-13 21:14 ==
LOC: ED 11:50 → EEVIPCON 14:19 → MEDTELE 14:19
PROVIDERS: ADMIT Internal Medicine; ATTEND Internal Medicine
DX: T43.591A Poisoning by other antipsychotics and neuroleptics, accidental (unintentional), initial encounter (principal); Y92.9 Unspecified place or not applicable; R44.3 Hallucinations, unspecified; Z87.898 Personal history of other specified conditions; Z91.5 Personal history of self-harm
CPT/HCPCS: 36415; 80053; 80307; 80320; 80329; 81003; 84443; 85025; 93005; 96374; 99283; A9270-GY; G0378; G0480

== ENCOUNTER 2016-11-13 21:14 | Inpatient (IN) | payer OTHER ==
[2016-11-14] MEDS ORDERED: Acetaminophen TAB* 325 MG PO PRN (01:31)
[2016-11-14] MEDS: Aspirin TAB* 325 MG PO SCH (08:07)
[2016-11-14] MEDS: BuPROPion XL* 150 MG TAB.XL PO SCH (11:58)
[2016-11-14] MEDS: risperiDONE TAB* 2 MG PO SCH ×2 (11:59→20:08)
--- NOTE | 2016-11-14 14:07 | HP ---
PSYCHIATRIC ASSESSMENT/HISTORY AND PHYSICAL: DATE OF ADMISSION: 11/13/16 JUSTIFICATION FOR ADMISSION: The patient is in need of 24-hour supervision and care secondary to arreguin icidal ideations. CHIEF COMPLAINT: "Right now I can't even watch television without me thinking that it's about me." HISTORY OF PRESENT ILLNESS: The patient is a 21-year-old single white Qatari Israeli male, with a history of substance abuse and affective disturbance, who was recently evaluated in the ED behavi oral health flex unit on 11/09/16. He now returns to the hospital admitting that he overdosed on an ywhere between 8 and 30 tablets of 100 mg Seroquel with uncertain motivations for doing so. At time s, the patient seems to relate that this was a suicide attempt but at other times, he was vague and indicated that he just wanted to either sleep or to feel better. I was told by his nurse on the [facility] unit where he was briefly hospitalized for telemetry and monitoring that he has made both suici pauly and homicidal statements to his one to one observer in that setting. This clinician did briefly evaluate the patient on 11/09/16, in our emergency department. At that time, he was compla ining of sleeplessness and some paranoid thoughts towards his family, which he did not elucidate. Hector mcgovern steadfastly denied suicidal or homicidal ideations at that time and stated that it was his intenti on to follow up with [facility]. During that assessment because he had been stab le on 100 mg of Seroquel in the past, I did prescribe him a 30-day supply of this medication. Unfort unately, in the intervening time, the patient was continuing to experience psychotic symptoms. He i ndicates that he has been under a great deal of stress because his father has not been allowing him to sleep in their house. He believes that this is because of his past history of substance abuse an d stealing things from this family. At any rate, the patient now endorses that he is having halluci nations of his father telling him that he is God. 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 The patient does endorse experiences of paranoia, for joya renteria, stating that the nurses on the medical unit were secretly [place] and wanted him to commit arun cide. He also made bizarre claims of unusual experiences such as seeing strangers in public and the n driving to a different part of town and seeing the exact same people. He was clearly confused and emotionally distraught. I was able to screen him for neurovegetative symptoms of depression; ila r, these were largely negative with the exception of sleep and concentration problems, which are per haps secondary to psychosis. In terms of historic background, he is telling me that he has not felt right since approximately 5 years ago when he had his first experience using synthetic cannabis. T his led to other substances of abuse. He is insisting at this time that he has been abstinent from drugs of abuse with the exception of alcohol since an overdose attempt in late July 2016. Symptomat ically, he denied anything consistent with dorothy, PTSD or OCD. He was waffling back and forth in angela of his willingness to be admitted to the behavioral science unit and therefore, he was placed on 9.39 legal paperwork. PAST PSYCHIATRIC HISTORY: The patient states that years ago he was placed on the trial of Lexapro a nd Seroquel by his outpatient family care provider, Dr. Ochoa in [place], [place]. He indicates t hat he had been largely nonadherent with this recently. He has also had past trials of Wellbutrin a nd Prozac, but does not remember much about his effect with these. Most recently, he has not had an y formal psychiatric treatment in the community. He states that he has made prior suicidal gestures by overdosing. In fact in late July, he was brought to the emergency department here at [facility] for a significant heroin overdose; however, he was transferred at that time to [facility] [place], [place], for further care. He cannot remember at that time if he was psychiatrically hospitalized. PAST MEDICAL HISTORY: Noncontributory. FAMILY HISTORY: The patient states that his older brother had a brief psychotic episode after worki ng too many hours at his job and had to take medication briefly, but no longer does so. SUBSTANCE ABUSE HISTORY: The patient indicates that he has been abusing drugs since the age of 16, starting with organic cannabis, then synthetic cannabis followed by methamphetamines and use of opio ids. He states that he has been sober since July. He did have a 2-month inpatient rehab stint at a facility in [place], [place], where he has family residing and was discharged sometime in 2016 but quickly relapsed. Most recently, he has been using alcohol in order to "take the edge of f." He denies being a cigarette smoker. Urine drug screen at this time is negative for all substan maryam tested including alcohol. SOCIAL HISTORY: The patient was born to an intact family in the [facility]; however, his mother w hen he was very young. He did move with his father to the [place] at the age of 4 and his fat her has since remarried and had 2 daughters through his new marriage. The patient does have 1 full biological older brother with whom he is somewhat close. The patient went to high school and gradua elizabeth with a diploma from [employer]. He then took courses at [employer] for approximately 2 years, but did not get a degree. 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 Apparently, when he started thi nking that his employers were artificial intelligence robots, he quit this job and has not been back to work in the past week. The patient is single, never . He is not currently sexually acti ve and has no history of sexually transmitted diseases. He is neither hinduism nor spiritual. He has no history of service. No history of legal problems. Currently, he is homeless and stefanie ing in his car in his father's driveway. The patient does indicate that he is closest with his brot her, Louis, but when he attempts to get his brother's telephone number out of his cellular phone, he discovers that the battery is . REVIEW OF SYSTEMS: The patient denies headache or double vision. He denies sore throat, cough, jesse st pain, difficulty breathing. He denies abdominal pain, nausea, vomiting, diarrhea, or constipatio n. Denies difficulty ambulating, rashes, enlarged lymph nodes, fevers, or changes in weight. PHYSICAL EXAMINATION VITAL SIGNS: Blood pressure 134/89, heart rate 83, respiratory rate 16, temperature 97.9 degrees Fa hrenheit, oxygen saturations are 100% on room air. HEENT: Head is normocephalic, atraumatic. NECK: Supple. CHEST: Clear to auscultation bilaterally. CARDIAC: Reveals normal heart sounds. ABDOMEN: Soft and nontender. NEUROLOGIC: He is grossly intact with no focal deficits. SKIN: Warm and dry. MENTAL STATUS EXAM: The patient is a young white male wearing patient scrubs. He has dishe veled hair. I do note some superficial cuts to his left forearm, which are self-inflicted. He appe ars to be extremely fatigue, although he is calm and cooperative. He is sitting up in a chair, vicky ng fairly good eye contact with me. Speech does display some latency, but is otherwise fluent. Moo d appears to be dysthymic with a blunt affect. Thought process shows mild thought blocking, but it is otherwise linear. Thought content is significant for paranoid delusions to the effect that other people at work are robots and that we are living in the "end times." He endorses auditory and visu al hallucinations. He is endorsing both suicidal and homicidal ideations stating at one point that he would hurt other people here in the hospital. Insight and judgment appears to be fair given his willingness to take antipsychotic therapy. Cognitively, he is awake and alert with what would appea r to be an average intellect. LABORATORY DATA: CBC and complete metabolic panel are both within normal limits as are urinalysis a nd urine drug screen. 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 [place] II: Deferred. [place] III: Status post Seroquel overdose. [place] IV: Severe primary support and housing stressors. [place] V: At this time is 30. ASSESSMENT: The patient is a 21-year-old single white Qatari Israeli male with a history of sub stance and affective problems, who was just evaluated and discharged from the psychiatric emergency room on 11/09/16, who now returns having overdosed on an unspecified number of Seroquel 100 mg table ts. At this time, the patient is acutely psychotic. He is endorsing both suicidal and homicidal th oughts as well as auditory and visual hallucinations. He appears to be extremely fatigued and overw helmed. Clearly, I think that he would benefit from inpatient psychiatric stabilization and we have accepted him as a transfer from the medical unit after he has been medically cleared. PLAN: The patient is admitted to the adult behavioral health unit where he is placed on q.15-minute checks for his own safety. He needs a trial of antipsychotic therapy and we will opt for treatment with risperidone 1 mg p.o. b.i.d. augmented with low-dose Wellbutrin XL 150 mg for better concentra tion. We need to get further collateral information from his brother and we may need to get reports from his primary care provider, Dr. Ochoa, and certainly he will need to be hooked up with [facility] mental health treatment, most likely at [facility] following disch arge. [id number]/[facility] #: [id number]
[2016-11-14] MEDS: Al Hydrox/Mg Hydrox/Simet LIQ* 30 ML UDC PO PRN (18:23)
[2016-11-14] MEDS ORDERED: risperiDONE TAB* 2 MG PO SCH (21:00)
[2016-11-15] MEDS: Aspirin TAB* 325 MG PO SCH (09:18)
[2016-11-15] MEDS: BuPROPion XL* 150 MG TAB.XL PO SCH (09:18)
[2016-11-15] MEDS: risperiDONE TAB* 2 MG PO SCH ×2 (09:19→20:42)
[2016-11-15] MEDS: Al Hydrox/Mg Hydrox/Simet LIQ* 30 ML UDC PO PRN (09:26)
[2016-11-15] MEDS: LORazepam TAB(*) 1 MG PO PRN (14:09)
--- NOTE | 2016-11-15 14:49 | PN ---
Subjective - Subjective Service Type: 66914 Hosp care 15 min low complexity Subjective: Juany is feeling slightly better today and is tolerating his meds well, other than slight sedation. His paranoia is reduced but he feels depressed and unsupported. 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 He denies SI or HI. Objective - Appearance Appearance: Well Developed/Nourished Dysmorphic Features: No Hygiene: Normal Grooming: Fairly Well Kept - Behavior Psychomotor Activities: Normal Exhibits Abnormal Movement: No - Attitude and Relatedness Attitude and Relatedness: Cooperative Eye Contact: Fair - Speech Quality: Unpressured Latencies: Normal Quantity: Appropriate - Mood Patient's Decription of Mood: "Sad" - Affect Observed Affect: Constricted Affect Consistent with: Dysphoria - Thought Process Patient's Thought Process: Coherent Thought Content: Yes Paranoid Ideation, No Passive Wish, No Suicidal Planning, No Homicidal Ideation - Sensorium Experiencing Hallucinations: No, Sensorium is Clear Type of Hallucinations: Visual: No, Auditory: No, Command: No - Level of Consciousness Level of Consciousness: Alert Orientation: Yes Intact, Yes Orientated to Time, Yes Orientated to Place, Yes Orientated to Person - Impulse Control Impulse Control: Tenuous - Insight and Judgement Insight and Judgement: Fair - Group Participation Particating in Group Activities: Yes - Medication Management Medication Management Adherence: Yes Assessment - Assessment Merits Inpatient Hospitalization: For Immediate Safety, For Stabilization Inpatient DSM-IV Dx: Unspecified Psychotic DO Clinical Impression: 21 y.o. single, white Nepalese-Pakistani male with a history of substance misuse and affective problems who is transferred from the [facility] following med-clearance from a quetipine overdose. The patient complains of several weeks of paranoia, AH and emergent SI and HI. Plan - Plan Treatment Plan: Name: JUANY SERRANO Birthdate: 1995 [id number] The patient is taking a combination of risperidone 1mg PO BID and bupropion XL 150mg PO qam. Continue intensive inpatient treatment. Continued Medication Management: Start Medication Medications: Current Medications Acetaminophen (Tylenol Tab*) 650 mg PO Q4H PRN PRN Reason: PAIN or TEMP > 101 F Al Hydrox/Mg Hydrox/Simethicone (Maalox Plus*) 30 ml PO Q4H PRN PRN Reason: INDIGESTION Last Admin: 11/15/16 09:26 Dose: 30 ml Aspirin (Aspirin Tab*) 325 mg PO QAM [facility] Last Admin: 11/15/16 09:18 Dose: 325 mg Bupropion HCl (Wellbutrin Xl *) 150 mg PO DAILY [facility] PRN Reason: Protocol Last Admin: 11/15/16 09:18 Dose: 150 mg Lorazepam (Ativan Tab(*)) 1 mg PO Q6H PRN PRN Reason: ANXIETY Last Admin: 11/15/16 14:09 Dose: 1 mg Risperidone (Risperdal*) 1 mg PO BID [facility] Last Admin: 11/15/16 09:19 Dose: 1 mg - Discharge Plan Discharge Plan: Inpatient Hospitalization
[2016-11-16] MEDS: Aspirin TAB* 325 MG PO SCH (09:17)
[2016-11-16] MEDS: BuPROPion XL* 150 MG TAB.XL PO SCH (09:17)
[2016-11-16] MEDS: risperiDONE TAB* 2 MG PO SCH ×2 (09:18→20:10)
--- NOTE | 2016-11-16 13:05 | PN ---
Subjective - Subjective Service Type: 10201 Hosp care 15 min low complexity Subjective: The patient is feeling less paranoid and expresses that his thoughts feel clearer and more focused. He has complained of mild sedation from his AM risperidone and requests that the medication be given all at night. He is more hopeful and is sleeping well. Patient eating and bathing appropriately; performs well in groups. Denies SI or HI. Family to visit this weekend and he will ask to be able to stay there again. Objective - Appearance Appearance: Well Developed/Nourished Dysmorphic Features: No Hygiene: Normal Grooming: Fairly Well Kept - Behavior Psychomotor Activities: Normal Exhibits Abnormal Movement: No - Attitude and Relatedness Attitude and Relatedness: Cooperative Eye Contact: Fair - Speech Quality: Unpressured Latencies: Normal Quantity: Appropriate - Mood Patient's Decription of Mood: "Okay" - Affect Observed Affect: Fair Affect Consistent with: Euthymia - Thought Process Patient's Thought Process: Coherent Thought Content: Yes Paranoid Ideation, No Passive Wish, No Suicidal Planning, No Homicidal Ideation - Sensorium Experiencing Hallucinations: No, Sensorium is Clear Type of Hallucinations: Visual: No, Auditory: No, Command: No - Level of Consciousness Level of Consciousness: Alert Orientation: Yes Intact, Yes Orientated to Time, Yes Orientated to Place, Yes Orientated to Person - Impulse Control Impulse Control: Tenuous - Insight and Judgement Insight and Judgement: Fair - Group Participation Particating in Group Activities: Yes - Medication Management Medication Management Adherence: Yes Assessment - Assessment Merits Inpatient Hospitalization: For Immediate Safety, For Stabilization Inpatient DSM-IV Dx: Unspecified Psychotic DO Clinical Impression: 21 y.o. single, white Slovak-Moldovan male with a history of substance misuse and affective problems who is transferred from the [facility] following med-clearance from a quetipine overdose. The patient complains of several weeks of paranoia, AH and emergent SI and HI. Plan - Plan Treatment Plan: Name: JUANY SERRANO Birthdate: 1995 [id number] The patient is taking a combination of risperidone 1mg PO BID and bupropion XL 150mg PO qam. Change risperidone to 2mg PO qhs. Continue intensive inpatient treatment. Continued Medication Management: Start Medication Medications: Current Medications Acetaminophen (Tylenol Tab*) 650 mg PO Q4H PRN PRN Reason: PAIN or TEMP > 101 F Al Hydrox/Mg Hydrox/Simethicone (Maalox Plus*) 30 ml PO Q4H PRN PRN Reason: INDIGESTION Last Admin: 11/15/16 09:26 Dose: 30 ml Aspirin (Aspirin Tab*) 325 mg PO QAM [facility] Last Admin: 11/16/16 09:17 Dose: 325 mg Bupropion HCl (Wellbutrin Xl *) 150 mg PO DAILY [facility] PRN Reason: Protocol Last Admin: 11/16/16 09:17 Dose: 150 mg Lorazepam (Ativan Tab(*)) 1 mg PO Q6H PRN PRN Reason: ANXIETY Last Admin: 11/15/16 14:09 Dose: 1 mg Risperidone (Risperdal*) 2 mg PO BEDTIME [facility] - Discharge Plan Discharge Plan: Inpatient Hospitalization
[2016-11-16] MEDS: Al Hydrox/Mg Hydrox/Simet LIQ* 30 ML UDC PO PRN (18:50)
[2016-11-16] MEDS: LORazepam TAB(*) 1 MG PO PRN (22:58)
[2016-11-17] MEDS: BuPROPion XL* 150 MG TAB.XL PO SCH (09:03)
[2016-11-17] MEDS: Aspirin TAB* 325 MG PO SCH (09:03)
[2016-11-17] MEDS: risperiDONE TAB* 2 MG PO SCH (20:24)
[2016-11-18 07:39] LABS: HDL Cholesterol 32.2 mg/dL
[2016-11-18] MEDS: Aspirin TAB* 325 MG PO SCH (07:54)
[2016-11-18] MEDS: BuPROPion XL* 150 MG TAB.XL PO SCH (07:54)
[2016-11-18] MEDS ORDERED: diPHENhydraMINE PO* 25 MG PO ONE (12:15)
--- NOTE | 2016-11-18 15:25 | PN ---
Subjective - Subjective Service Type: 78012 Hosp care 15 min low complexity Subjective: Mukund reports that he is diong better on current meds. His paranoia has been significantly less and denies any hallucinations. Suicidal thoughts still crosses his mind but denies any active thoughts or intents. Slept 7 hours last night. Tolerating meds and activities well. Avoiding direct eye contacts but thoughts are logical and well organized. Objective - Appearance Appearance: Well Developed/Nourished Dysmorphic Features: No Hygiene: Normal Grooming: Well Kept - Behavior Psychomotor Activities: Normal Exhibits Abnormal Movement: No - Attitude and Relatedness Attitude and Relatedness: Appropriate Eye Contact: Poor - Speech Quality: Unpressured Latencies: Normal Quantity: Appropriate - Mood Patient's Decription of Mood: "Okay" - Affect Observed Affect: Constricted Affect Consistent with: Dysphoria - Thought Process Patient's Thought Process: Coherent, Goal Directed Thought Content: Yes Passive Wish, Yes Paranoid Ideation, No Suicidal Planning, No Homicidal Ideation - Sensorium Experiencing Hallucinations: No, Sensorium is Clear Type of Hallucinations: Visual: No, Auditory: No, Command: No - Level of Consciousness Level of Consciousness: Alert Orientation: Yes Intact, Yes Orientated to Time, Yes Orientated to Place, Yes Orientated to Person - Impulse Control Impulse Control: Intact - Insight and Judgement Insight and Judgement: Fair - Group Participation Particating in Group Activities: Yes - Medication Management Medication Management Adherence: Yes Assessment - Assessment Merits Inpatient Hospitalization: For Stabilization, For Discharge Planning Inpatient DSM-IV Dx: Unspecified Psychotic DO Clinical Impression: Still psychotic and suicidal. Plan - Plan Treatment Plan: Name: JUANY SERRANO Birthdate: 1995 [id number] Continued Medication Management: Continue Outpt Medication Medications: Current Medications Acetaminophen (Tylenol Tab*) 650 mg PO Q4H PRN PRN Reason: PAIN or TEMP > 101 F Al Hydrox/Mg Hydrox/Simethicone (Maalox Plus*) 30 ml PO Q4H PRN PRN Reason: INDIGESTION Last Admin: 11/16/16 18:50 Dose: 30 ml Aspirin (Aspirin Tab*) 325 mg PO QAM [facility] Last Admin: 11/18/16 07:54 Dose: 325 mg Bupropion HCl (Wellbutrin Xl *) 150 mg PO DAILY [facility] PRN Reason: Protocol Last Admin: 11/18/16 07:54 Dose: 150 mg Lorazepam (Ativan Tab(*)) 1 mg PO Q6H PRN PRN Reason: ANXIETY Last Admin: 11/16/16 22:58 Dose: 1 mg Risperidone (Risperdal*) 2 mg PO BEDTIME [facility] Last Admin: 11/17/16 20:24 Dose: 2 mg - Discharge Plan Discharge Plan: Outpatient Follow Up Outpatient Program: [facility].
[2016-11-18] MEDS: LORazepam TAB(*) 1 MG PO PRN (18:23)
[2016-11-18] MEDS: risperiDONE TAB* 2 MG PO SCH (20:59)
[2016-11-19] MEDS: BuPROPion XL* 150 MG TAB.XL PO SCH (08:32)
[2016-11-19] MEDS: Aspirin TAB* 325 MG PO SCH (08:32)
[2016-11-19 08:38] VITALS: BP 138/72
--- NOTE | 2016-11-19 12:42 | DCNOTE ---
Subjective - Subjective Discharge Date: 11/19/16 Subjective: Patient doing better. Denies SI or HI; denies AH or VH. No paranoia noted. Appears slightly blunted, perhaps from medication effect. Step mother Nancy meets for d/c family session. She is supportive of discharge. Objective - Appearance Appearance: Well Developed/Nourished Dysmorphic Features: No Hygiene: Normal Grooming: Well Kept - Behavior Psychomotor Activities: Normal Exhibits Abnormal Movement: No - Attitude and Relatedness Attitude and Relatedness: Cooperative Eye Contact: Fair - Speech Quality: Unpressured Latencies: Normal Quantity: Appropriate - Mood Patient's Decription of Mood: "Okay" - Affect Observed Affect: Fair Affect Consistent with: Euthymia - Thought Process Patient's Thought Process: Coherent Thought Content: No Passive Wish, No Suicidal Planning, No Homicidal Ideation, No Paranoid Ideation - Sensorium Experiencing Hallucinations: No, Sensorium is Clear Type of Hallucinations: Visual: No, Auditory: No, Command: No - Level of Consciousness Level of Consciousness: Alert Orientation: Yes Intact, Yes Orientated to Time, Yes Orientated to Place, Yes Orientated to Person - Impulse Control Impulse Control: Intact - Insight and Judgement Insight and Judgement: Good - Group Participation Particating in Group Activities: Yes - Medication Management Medication Management Adherence: Yes DC Assessment - Assessment Clinical Impression: 21 y.o. single, white Turkish-Jordanian male with a history of substance misuse and affective problems who is [facility] following med-clearance from a quetipine overdose. The patient complains of several weeks of paranoia, AH and emergent SI and HI. Merits Inpatient Hospitalization: No Clear for Discharge: Adequate Clinical Respons, Acceptable Safety Profile, Low Utility of Inpt Care Inpatient DSM-IV Dx: Unspecified Psychotic DO Discharge Planning - Discharge Planning Discharge Plan: Outpatient Follow Up Outpatient Program: [facility] Recommendations for Continuing Care: Medication Management, Psychotherapy Medications: Current Medications Acetaminophen (Tylenol Tab*) 650 mg PO Q4H PRN PRN Reason: PAIN or TEMP > 101 F Al Hydrox/Mg Hydrox/Simethicone (Maalox Plus*) 30 ml PO Q4H PRN PRN Reason: INDIGESTION Last Admin: 11/16/16 18:50 Dose: 30 ml Aspirin (Aspirin Tab*) 325 mg PO [facility] Last Admin: 11/19/16 08:32 Dose: 325 mg Bupropion HCl (Wellbutrin Xl *) 150 mg PO DAILY [facility] PRN Reason: Protocol Last Admin: 11/19/16 08:32 Dose: 150 mg Lorazepam (Ativan Tab(*)) 1 mg PO Q6H PRN PRN Reason: ANXIETY Last Admin: 11/18/16 18:23 Dose: 1 mg Risperidone (Risperdal*) 2 mg PO BEDTIME [facility] Last Admin: 11/18/16 20:59 Dose: 2 mg Discharge Planning: Prescriptions provided for discharge [] Yes [] No Follow up care details as per social work arrangements. Patient response to discharge plan: [] eager for discharge [] agreeable with discharge plan [] ambivalent about discharge [] disagrees with discharge today Lab Results - Lab Results Lab Results: 11/18/16 07:09 Triglycerides 129 Cholesterol 193 LDL Cholesterol 135 HDL Cholesterol 32.2
--- NOTE | 2016-11-19 16:11 | DS ---
DATE OF ADMISSION: 11/13/2016. DATE OF DISCHARGE: 11/19/2016. DISCHARGE DIAGNOSES: AXIS I: Unspecified psychotic disorder; opioid dependence, in sustained remission; cannabis use disorder, in sustained remission; methamphetamine use disorder, in sustained remission. AXIS II: Deferred. AXIS III: Status post Seroquel overdose. AXIS IV: Severe, primary support and housing stressors. AXIS V: At the time of admission was 30 and at the time of discharge is 60. CONDITION AT THE TIME OF DISCHARGE: Stable. The patient is tolerating his medications quite well. He denies paranoid ideation. He denies auditory or visual hallucinations. He denies suicidal or homicidal ideations. The patient has been visited on the unit by his family. I speak with his stepmother, Nancy Urias, and she indicates that Janice has a safe place to return to with his father and her and his siblings. They indicate that there are no firearms in the house. They are very supportive and ultimately in support of the discharge plan. The patient is agreeable with follow-up at [facility] and he notes that he can return to either the hospital or to the crisis walk-in clinic at [facility]. Furthermore, the patient's drug abuse history has been in remission since late July of 2016 and he shows no interest in returning to a life of drug use. With respect to his safety following discharge, I will say that this is the first psychotic break for this 21-year-old gentleman of immigrant status. This history does place him at a higher chronic risk for suicide; however, the acute stressors, such as the disagreements with his family and the acute psychotic symptoms have been ameliorated in the hospital and we feel that discharge to a lower level of care is justified at this time. MENTAL STATUS EXAMINATION: The patient is a young white male wearing a rueda shirt and jeans. He is clean and well-groomed. He makes good eye contact. It is easy to establish a rapport with him. Speech is slow, but otherwise fluent. Mood appears to be euthymic with a mildly blunted affect. Thought process is linear. 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 The patient denies suicidal or homicidal ideations. He denies auditory or visual hallucinations. Insight and judgment appear to be fair given his willingness to follow-up with outpatient treatment. Cognitively, he is awake and alert with what would appear to be an average intellect. DISCHARGE INSTRUCTIONS TO THE PATIENT: A. Medications: He is taking Risperidone 2 mg p.o. at bedtime. He is taking Bupropion XL 150 mg p.o. daily. B. Diet: Regular. C. Activities: As tolerated. The patient is a nonsmoker. There are no laboratory or diagnostic studies pending at the time of discharge. D. Follow-up care: The patient will follow-up at the [facility] within one week of discharge. There he will be receiving both psychiatric and psychotherapeutic services. HOSPITAL COURSE - PART A: Reason for admission: The patient is a 21-year-old, single, white, [place]- [place] immigrant male with a history of substance abuse and affective problems who was recently evaluated in our ED Behavioral Health Unit on 11/09/2016, who now returns to the hospital admitting that he overdosed on anywhere between 8 and 30 tablets of 100 mg strength Seroquel with uncertain motivations for doing so. At times when he was evaluated on the Medical service, as he was being medically cleared, he seemed to relate that this was a suicide attempt, but at other times he was vague and indicated that he just want to either sleep or to feel better. I was told by his nurse on the Medical Unit prior to his transfer to Psychiatry, that he had made both suicidal and homicidal statements to one of his observers in that setting. Prior to this hospitalization, this clinician did evaluate the patient briefly in the ED flex space on 11/09/2016. At that time, he was complaining of sleeplessness and some paranoid ideation toward his family which he did not elucidate. When evaluated in the ER at that time, he steadfastly denied suicidal or homicidal ideations and stated that it was his intention to follow- up with [facility]. During that assessment, he indicated that he had been stable for a long period of time on 100 mg of p.o. Seroquel, which had been prescribed by his family supervising airplane pilot, Dr. Ochoa, in [place], [place]. He was released on a small supple of Seroquel and instructed to follow-up at [facility]. Unfortunately in the intervening time, the patient continued to have psychotic symptoms. He indicated that he had been under a great deal of stress because his father had not been allowing him to sleep in their house. He believed that this was because of his past history of substance abuse and stealing things from his family. At any rate, upon his return to the hospital, he was endorsing hallucinations of his father telling him that he was God. He also indicates that he was having amish preoccupations approximately three weeks prior to discharge and these changed into delusions that the people at his work were artificial intelligence robots. The patient did endorse experiences of paranoia ; for example, stating that the nurses on the Medical Unit were secretly [place]an and wanted him to commit suicide. He also made bizarre claims of unusual experiences, such as seeing strangers in public and then driving to a different location and seeing the exact same people. He was clearly confused and emotionally distraught. I was able to screen him for neurovegetative symptoms of depression; however, these were largely negative with the exception of sleep and concentration problems. He did admit to a history of abuse of cannabis, methamphetamines, and opioids, but he has been clean since late July 2016 at which time he had had an overdose which required his transfer to the [facility] in [place], [place]. HOSPITAL COURSE - PART B: Psychiatric treatment rendered: The patient was admitted to the Adult Behavioral Health Unit where he was placed on q.15 minute checks for his own safety. We discussed options for treatment and ultimately he was placed on a trial of Risperidone 1 mg p.o. b.i.d. which he tolerated well with the exception of sedation. For this reason, we changed it to at bedtime dosing at the dose of 2 mg p.o. at bedtime which he tolerated much better. Because of sedation, but also because of chronic concentration problems and some feelings of dysthymia, we did initiate a trial of Wellbutrin XL 150 mg p.o. daily which he seemed to benefit from. The patient was visited by his brother and his parents on the unit. On the day of discharge, we met with his stepmother, Nancy, and she indicated that the family felt safe taking him home and they were agreeable with the discharge plan. The patient progressively stopped having paranoid ideations, stopped having auditory or visual hallucinations, and stopped having any thoughts of suicidal or homicidal ideation. He tolerated his medications ultimately quite well and could see a big difference in terms of his ability to function. He did contact his employers and arranged to return to work one week past his discharge date, which would give him some additional time to adjust to his medications. The patient is very much agreeable with outpatient treatment and he is requesting discharge at this time. I do not feel that I have a legal justification for keeping him any further on an involuntary basis. His parents are indicating that he is fine to return to their home, although in the alf the patient is talking about moving out and getting his own apartment and perhaps going back to school. [id number]/[facility] #: [id number] LANA
== END 2016-11-19 13:24 | disposition home or self-care (01) | DRG 751 ==
LOC: BSU 21:14
PROVIDERS: ADMIT Psychiatry & Neurology Psychiatry; ATTEND Psychiatry & Neurology Psychiatry
DX: F29 Unspecified psychosis not due to a substance or known physiological condition (principal); R45.851 Suicidal ideations; R45.850 Homicidal ideations; F11.21 Opioid dependence, in remission; F12.21 Cannabis dependence, in remission; F15.21 Other stimulant dependence, in remission
CPT/HCPCS: 36415; 80061; 83036; 99222; 99231; 99238; A9270-GY

== ENCOUNTER 2017-04-07 16:55 | Emergency (ER) | payer OTHER ==
[2017-04-07 17:15] VITALS: BP 127/92
--- NOTE | 2017-04-07 17:58 | UC ---
Regulo Hartman Stephanie, scribed for Demetrius Sullivan MD on 04/07/17 at 1756 . Psychiatric Complaint HPI - HPI Summary HPI Summary: The pt is a 21 y/o M presenting to with c/o losing his Rx for Wellbutrin 150 mg daily for depression, written by Dr. Ochoa. The pt states the last time he took a dose was 2 weeks ago. Denies thoughts of SI or self-harm. - History Of Current Complaint Chief Complaint: UCGeneralIllness Stated Complaint: REFILL SCRIPT Time Seen by Provider: 04/07/17 17:42 Hx Obtained From: Patient Onset/Duration: Lasting Weeks - 2, Still Present Timing: Constant Character: Depressed Aggravating Factor(s): Nothing Alleviating Factor(s): Medication Associated Signs And Symptoms: Negative - Allergies/Home Medications Allergies/Adverse Reactions: Allergies Allergy/AdvReac Type Severity Reaction Status Date / Time No Known Allergies Allergy Verified 04/07/17 17:16 PMH/Surg Hx/FS Hx/Imm Hx Psychological History: Depression - Surgical History Surgical History: Yes Surgery Procedure, Year, and Place: wisdom teeth, sinus surgery - Family History Known Family History: Positive: Other - psychiatric hx Negative: Cardiac Disease, Hypertension, Diabetes - Social History Occupation: Student Lives: Dormitory/Roommates Alcohol Use: None Substance Use Type: Prescribed Substance Use Comment - Amount & Last Used: Patient denies illicit drug use but previous evaluation indicate otherwise Smoking Status (MU): Never Smoked Tobacco Type: Smokeless Tobacco Have You Smoked in the Last Year: No - Immunization History Most Recent Influenza Vaccination: unknown- patient declined Most Recent Pneumonia Vaccination: unknown- but refused to have same Review of Systems Constitutional: Negative Skin: Negative Eyes: Negative ENT: Negative Respiratory: Negative Cardiovascular: Negative Gastrointestinal: Negative Genitourinary: Negative Motor: Negative Neurovascular: Negative Musculoskeletal: Negative Neurological: Negative Psychological: Depressed All Other Systems Reviewed And Are Negative: Yes Physical Exam Triage Information Reviewed: Yes Vital Signs: Initial Vital Signs Temp 97.3 F 04/07/17 17:12 Pulse 72 04/07/17 17:12 Resp 12 04/07/17 17:12 BP 127/92 04/07/17 17:12 Pulse Ox 99 04/07/17 17:12 Vital Signs Reviewed: Yes - Additional Comments General: well-appearing, no pain distress Skin: warm, color reflects adequate perfusion, dry Head: normal Eyes: EOMI, DARON ENT: normal Neck: supple, nontender Respiratory: CTA, breath sounds present Cardiovascular: RRR Abdomen: soft, nontender Bowel: present Musculoskeletal: normal, strength/ROM intact Neurological: normal, sensory/motor intact, A&O x3 Psychological: affect/mood appropriate Psych Complaint Course/Dx - Course Course Of Treatment: Medications reviewed. BP noted and advised to follow up with PCP. - Differential Dx/Diagnosis Provider Diagnoses: DEPRESSION MED REFILL. elevated BP without dx of HTN Discharge - Discharge Plan Condition: Stable Disposition: HOME Prescriptions: Bupropion XL* [Wellbutrin XL *] 150 mg PO DAILY #30 tab Patient Education Materials: Depression (ED) Referrals: [facility] [facility] [Outside] Additional Instructions: FOLLOW UP WITH YOUR DOCTOR. GET RECHECKED FOR ANY WORSENING OF YOUR CONDITION OR QUESTIONS OR CONCERNS. YOUR BLOOD PRESSURE WAS ELEVATED DURING TODAY'S VISIT; FOLLOW UP WITH YOUR PCP WITHIN ONE WEEK FOR FURTHER EVALUATION. The documentation as recorded by the Regulo guajardo Stephanie accurately reflects the service I personally performed and the decisions made by me, Demetrius Sullivan MD.
== END 2017-04-07 18:08 | disposition home or self-care (01) ==
LOC: UCEAST 16:55
DX: F32.9 Major depressive disorder, single episode, unspecified (principal); Z76.0 Encounter for issue of repeat prescription
CPT/HCPCS: 99212; G0463